=== PATIENT | female | born 1960 | race Caucasian/White ===

== ENCOUNTER 2018-01-17 07:10 | Outpatient (CLI) | payer OTHER ==
[~2018-01-17 07:10] MED LIST: BENTYL 20 MG PO; CIPRO500 MG PO; FLAGYL500MG PO; FLEXERIL 10 MG PO; PROTONIX40 MG PO; VOLTAREM 75 MG PO
== END 2018-01-17 07:17 | disposition home or self-care (01) ==
LOC: LAB 07:10
DX: R42 Dizziness and giddiness (principal); Z00.00 Encounter for general adult medical examination without abnormal findings

== ENCOUNTER 2018-02-16 07:58 | Outpatient (CLI) | payer OTHER | END 2018-02-16 15:13 | disposition home or self-care (01) | LOC: MAMO-SONO 07:58 | DX: Z12.31 Encounter for screening mammogram for malignant neoplasm of breast (principal); N64.89 Other specified disorders of breast ==

== ENCOUNTER 2019-08-10 13:50 | Emergency (ER) | payer OTHER ==
[~2019-08-10] VITALS: Ht 160 cm; Wt 71.7 kg
== END 2019-08-10 20:21 | disposition home or self-care (01) ==
LOC: ER 13:50
DX: R10.32 Left lower quadrant pain (principal)

== ENCOUNTER 2021-07-10 07:02 | Outpatient (CLI) | payer OTHER ==
[~2021-07-10 07:02] MED LIST changes: +DICLOFENAC POTA50 MG PO; +SKELAXIN800 MG PO
== END 2021-07-10 08:00 | disposition home or self-care (01) ==
LOC: LAB 07:02
DX: D64.9 Anemia, unspecified (principal); I10 Essential (primary) hypertension; E78.5 Hyperlipidemia, unspecified; N39.0 Urinary tract infection, site not specified; R19.5 Other fecal abnormalities; E03.8 Other specified hypothyroidism; E55.9 Vitamin D deficiency, unspecified